=== PATIENT | female | born 2000 | race American Indian/Alaskan Native ===

== ENCOUNTER 2019-11-09 00:13 | Emergency (ER) | payer OTHER ==
[2019-11-09 00:22] VITALS: BP 130/74
== END 2019-11-09 03:00 | disposition left against medical advice (07) ==
LOC: ED 00:13
DX: Z04.1 Encounter for examination and observation following transport accident (principal); Z53.21 Procedure and treatment not carried out due to patient leaving prior to being seen by health care provider